=== PATIENT | male | born 1950 | race Caucasian/White ===

== ENCOUNTER 2023-01-03 11:53 | Outpatient (OUT) | payer OTHER, SELFPAY ==
[2023-01-03 12:24] LABS: Basophils Percent Auto 0.6 % (0.2-2.0); Eosinophils Absolute Auto 0.1 10^3/uL (0.0-0.7); Hematocrit 43.7 % (42.0-54.0); Hemoglobin 15.5 g/dL (14.0-18.0); Immature Granulocytes Abs Auto 0.01 10^3/uL (0.00-0.03); Immature Granulocytes Pct Auto 0.2 % (0.0-0.5); Lymphocytes Absolute Auto 0.9 10^3/uL (1.2-3.8); Lymphocytes Percent Auto 18.9 % (20.5-60.0); Mean Corpuscular HGB Conc 35.5 g/dL (29.9-35.2); Mean Corpuscular Hemoglobin 34.1 pg (25.9-34.0); Mean Platelet Volume 8.9 fL (9.5-13.5); Monocytes Absolute Auto 0.5 10^3/uL (0.3-0.8); Monocytes Percent Auto 9.1 % (1.7-12.0); Neutrophils Absolute Auto 3.5 10^3/uL (1.4-6.5); Neutrophils Percent Auto 70.2 % (43.0-75.0); Platelet Count 196 10^3/uL (150-450); Red Blood Count 4.55 10^6/uL (4.70-6.10); Red Cell Distribution Width 12.7 % (11.0-15.0)
[2023-01-03 12:45] LABS: Alanine Aminotransferase 22 U/L (16-63); Albumin Level 3.8 g/dL (3.4-5.0); Alkaline Phosphatase 71 U/L (46-116); Anion Gap 12.1; Aspartate Amino Transferase 14 U/L (15-37); BUN Creatinine Ratio 12.3; Bilirubin Total 0.7 mg/dL (0.2-1.0); Calcium 8.9 mg/dL (8.5-10.1); Carbon Dioxide 26.9 mmol/L (21.0-32.0); Chloride 104 mmol/L (98-107); Cholesterol 222 mg/dL (<=200); Estimated GFR (African America >60 (>=60); Estimated GFR (Non-African Ame >60 (>=60); Globulin 3.7 g/dL; Glucose 103 mg/dL (74-106); HDL Cholesterol 56 mg/dL (40-60); Sodium 139 mmol/L (136-145); Total Protein 7.5 g/dL (6.4-8.2); Triglycerides 98 mg/dL (<=150); VLDL CHOLESTEROL 19.6 mg/dL
[2023-01-03 13:12] LABS: Prostate Specific Antigen Scrn 7.74 ng/mL (<=4.00)
== END 2023-01-03 11:54 | disposition home or self-care (01) ==
PROVIDERS: PCP Internal Medicine; Visit Provider Internal Medicine
DX: Z00.00 Encounter for general adult medical examination without abnormal findings (principal); Z12.5 Encounter for screening for malignant neoplasm of prostate
CPT/HCPCS: 36415; 80053; 80061; 85025; G0103

== ENCOUNTER 2023-04-18 07:46 | Outpatient (OUT) | payer OTHER, SELFPAY ==
--- NOTE | 2023-04-18 07:57 | CT_ITS ---
The [address] [address] Patient Name: ROBERT BERG MRN: [id number] date: 1950 Sex: M Assigned Patient Location: LAB Current Patient Location: LAB Accession/Order Number: [id number] Exam Date: 04/18/2023 09:15 Report Date: 04/18/2023 09:56 At the request of: MATT PERKINS Procedure: CT abdomen pelvis w con CT abdomen pelvis w con, 04/18/2023 9:15 AM EST INDICATION: Gross Hematuria R31.0 COMPARISON: There is no appropriate prior study for comparison. TECHNIQUE: Axial images of the abdomen were obtained after the administration of IV and oral contrast. Multiplanar reformatted images were generated and reviewed as needed. Dose reduction techniques were achieved by using automated exposure control and/or adjustment of mA and/or kV according to patient size and/or use of iterative reconstruction technique. FINDINGS: Lungs: The base of lungs is clear. No pleural effusion is noted. Liver and gallbladder: The liver and gallbladder are unremarkable. No enlargement of intra or extrahepatic biliary ducts. Genitourinary system: No hydronephrosis. No nephrolithiasis. Left-sided parapelvic (sinus) cysts are noted. No suspicious renal lesion is noted. There is a large prostate extending to the urinary bladder. No abnormality of the opacified ureters is noted. There is asymmetrical thickening of the right urinary bladder wall measuring 3.2 mm. Other solid abdominal organs: adrenal glands, pancreas, and spleen are unremarkable. Aorta: The infrarenal abdominal aorta is nonaneurysmal. Free fluid: There is no free fluid in the abdomen pelvis. Lymph node: No lymph node enlargement by size criteria is noted. Stomach and Bowel: There is a large hypodense lesion with significant calcification along the cardia and fundus of the stomach with no definite obstruction most likely consistent with a gastrointestinal stromal tumor. No adjacent lymphadenopathy is noted. No abnormality of small or large bowel is noted. Bone: There is no suspicious osteolytic or osteoblastic lesion. Lower lumbar spine degenerative changes are noted. CT/CT abdomen pelvis w con IMPRESSION: Asymmetrical thickening of the right urinary bladder wall. Cystoscopy and histopathology correlation may be helpful for further evaluation. Mass along the cardia and fundus of the stomach with calcification most likely consistent with gastrointestinal stromal tumor. No evidence of metastasis. Endoscopy and histopathological correlation is recommended if it is not known. An incidental note was submitted to inform the clinician at 9:55 AM. Electronically authenticated by: CASE KEMP Date: 04/18/2023 09:56
[2023-04-18 08:05] LABS: Estimated GFR (African America >60 (>=60); Estimated GFR (Non-African Ame >60 (>=60)
[2023-04-19 14:10] LABS: PSA, Free 2.07 ng/mL; Prostate Specific Ag 6.5 ng/mL (0.0-4.0)
--- OUTSIDE RECORDS SUMMARY | 2023-05-16 22:07 | XMS_ITS | CCD ---
Author Name Unknown Address [address] [place] [address] Organization [facility] Care Team Providers Care Human Resource Adviser Name Role Phone Destinee Arteaga Unavailable Luisito Romero Unavailable LUISITO ROMERO Primary Care Physician Kashif BOWMAN Attending Unavailable Kashif BOWMAN Attending Unavailable LUISITO ROMERO Referring Unavailable Destinee Arteaga Attending Unavailable Destinee Arteaga Admitting Unavailable Luisito Romero Primary Care Unavailable DO Luisito Romero Primary Care Provider MD Leonardo Alves Attending Provider [phone] Allergies Allergy Classification Reported Allergen(s) Allergy Type Date of Onset Reaction(s) Facility (1 source) No Known Medication Allergies; Translations: [No Known Medication Allergies] Propensity to adverse reactions (disorder) [facility] Medications Current Medications Medication Drug Class(es) Dates Sig (Normalized) Sig (Original) aspirin 81 mg oral tablet (9 sources) Platelet Aggregation Inhibitor, Nonsteroidal Anti-inflammatory Drug Start: 05-16-2023 take 81 mg by mouth once daily Aspirin Active 81 MG PO Daily May 16, 2023 12:00am Start: 05-01-2023 take 1 mg by mouth once daily aspirin 81 mg Oral EC Tab mg tab(s), Oral, Daily, Refills(s) 0 Start Date: 05/01/23 Status: Ordered take 2 tablets by mo [facility] once daily Aspirin 81 81 MG 2 tablet Orally Once a day Active take 2 tablets by mo ut every twenty-four hours Aspirin 81 81 MG 2 tablet Orally Once a day Active take 1 tablet by [facility] every twenty-four hours Aspirin 81 81 MG 1 tablet Orally Once a day Active ciprofloxacin 500 mg oral tablet (1 source) Quinolone Antimicrobial Start: 05-01-2023 End: 05-08-2023 Cipro 500 mg Tab 500 mg = 1 tab(s), Oral, BID, start 3 days prior to procedure, X 7 day(s), # 14 tab(s), Refills(s) 0, Pharmacy: [facility] 1155, 185, cm, 05/01/23 13:27:00 EST, Height/Length Dosing, 95, kg, 05/01/23 13:27:00 EST, Weight Dosing Start Date: 05/01/23 Stop Date: 05/08/23 Status: Ordered tamsulosin hydrochloride 0.4 mg oral capsule (1 source) alpha-Adrenergic Ibis Start: 05-01-2023 End: 04-25-2024 take 1 capsule by mouth once daily tamsulosin 0.4 mg Cap 0.4 mg = 1 cap(s), Oral, Daily, X 30 day(s), # 30 cap(s), Refills(s) 11, Pharmacy: [facility] 1155, 185, cm, 05/01/23 13:27:00 EST, Height/Length Dosing, 95, kg, 05/01/23 13:27:00 EST, Weight Dosing Start Date: 05/01/23 Stop Date: 04/25/24 Status: Ordered Completed/Discontinued Medications Medication Drug Class(es) Dates Sig (Normalized) Sig (Original) amoxicillin 875 mg / clavulanate 125 mg oral tablet (6 sources) Penicillin-class Antibacterial Start: 01-03-2023 take 1 tablet by mouth every twelve hours Amoxicillin-Pot Clavulanate 875-125 MG 1 tablet Orally every 12 hrs for 10 days Dec, Not-Taking cefTRIAXone (7 sources) Cephalosporin Antibacterial Start: 12-11-2014 Rocephin 500 mg Nov, 250 mg sulfamethoxazole 800 mg / trimethoprim 160 mg oral tablet (14 sources) Dihydrofolate Reductase Inhibitor Antibacterial, Sulfonamide Antimicrobial Start: 12-03-2022 take 1 tablet by mouth every twelve hours Bactrim DS 800-160 MG 1 tablet Orally Twice a day for 21 days Nov, Not-Taking Start: 12-11-2014 take 1 tablet by travis th every twelve hours Bactrim DS 800-160 MG 1 tablet Orally q 12 hrs for 10 day(s) Nov, Not-Taking Problems Problem Classification Problem Date Documented Da te Episodic/Chronic Fracture of lower limb (1 source) Nondisplaced fracture of proximal phalanx of right great toe, subsequent encounter for fracture with routine healing Episodic Genitourinary symptoms and ill-defined conditions (6 sources) Gross hematuria; Translations: [Nocturia] Onset: 05-01-2023 Episodic Hyperplasia of prostate (4 sources) Nocturia due to benign prostatic hypertrophy; Translations: [Benign prostatic hyperplasia with lower urinary tract symptoms] Onset: 05-01-2023 Chronic Other connective tissue disease (1 source) Pain in right toe(s) Episodic Other ear and sense organ disorders (1 source) Cellulitis of right external ear Episodic Other nutritional; endocrine; and metabolic disorders (1 source) Overweight Episodic Other screening for suspected conditions (not mental disorders or infectious disease) (7 sources) Encounter for screening for malignant neoplasm of prostate; Translations: [Elevated prostate specific antigen [PSA]] Onset: 05-01-2023 Episodic Residual codes; unclassified (1 source) Procedure and treatment not carried out because of patient's decision for unspecified reasons Episodic Skin and subcutaneous tissue infections (6 sources) Cellulitis of right toe; Translations: [Cellulitis of toe of right foot] Episodic Substance-related disorders (2 sources) Nicotine dependence; Translations: [Nicotine dependence, unspecified, uncomplicated] Onset: 05-01-2023 Chronic Comment on above: Added secondary to d ocumentation in Social History. Unclassified (1 source) Pain in right toe(s); Translations: [Randi n in right toe(s)] Onset: 12-03-2022 Results Test Name Value Interpretation Reference Range Facil ity Formson 05-02-2023 Forms [id number] FF Normal [facility] Physician Referralon 023 Physician Referral [id number] [facility] Screenson 05-02-2023 Screens [id number] FF [facility] Ambulatory Visit Summaryon 1 07-02-2022 Ambulatory Visit Summary ROBERT BERG :1950 Visit Date:05/01/2023 Ambulatory Visit Instructions Your Diagnosis Elevated PSA BPH with urinary obstruction Gross hematuria Smoker Tests Performed Urnls Dip Stick Auto w/o Microscopy POC 87584 Your Care Team Attending Physician - ALY MENJIVAR, Kashif Menendez Primary Care Physician - LUISITO ROMERO DO Referring Physician - LUISITO ROMERO DO This Is Your Medications List Contact prescribing physician if questions or concerns aspirin (aspirin 81 mg Oral EC Tab) Discharge Vitals Heart Rate (Peripheral) 76 Respiratory Rate 16 Blood Pressure 134/78 Height 185 cm Height 73 in Weight 95 kg Weight 209 lb BMI 27.76 What to do next You Need to Schedule the Following Appointments Follow Up with ALY MENJIVAR, Kashif Menendez, CHAS When: Comments: sched cysto and TRUS/bx Where: [facility] [address] [place] [address] [phone] Medications What How Much When Instructions Unchanged aspirin (aspirin 81 mg Oral EC Tab) Every day Contact prescribing physician if questions or concerns Test Results Urnls Dip Stick Auto w/o Microscopy POC 78577 (05/01/2023) Bilirubin Urine Dipstick - Negative Blood Urine Dipstick - Negative Glucose Urine Dipstick - Negative Ketones Urine Dipstick - Negative Leukocytes Urine Dipstick - Negative Nitrite Urine Dipstick - Negative Protein Urine Dipstick - Negative Specific Josephine Urine Dipstick - 1.025 Urine Appearance Urine Dipstick - Clear Urine Color Urine Dipstick - Yellow Urobilinogen Urine Dipstick - Normal 0.2-1 EU/dl pH Urine Dipstick - 6 Allergies No Known Medication Allergies Problems Ongoing - Any problem that you are currently receiving treatment for. BPH with urinary obstruction Elevated PSA Gross hematuria Smoker Patient Survey You may receive a survey via text or e-mail asking about your office visit. Please share your experience with us by completing your survey. We appreciate your feedback and thank you for choosing us for your care. Education Materials Transrectal Ultrasound-Guided Prostate Biopsy, Care After The following information offers guidance on how to care for yourself after your procedure. Your health care provider may also give you more specific instructions. If you have problems or questions, contact your health care provider. What can I expect after the procedure? After the procedure, it is common to have: ? Pain and discomfort near your rectum, especially while sitting. ? Bow-colored urine due to small amounts of blood in your urine. ? A burning feeling while urinating. ? Blood in your stool (feces) or bleeding from your rectum. ? Blood in your semen. Follow these instructions at home: Medicines ? Take wndg-rni-kluobju and prescription medicines only as told by your health care provider. ? If you were given a sedative during your procedure, it can affect you for several hours. Do not drive or operate machinery until your health care provider says that it is safe. ? If you were prescribed an antibiotic medicine, take it as told by your health care provider. Do not stop using the antibiotic even if you start to feel better. Activity ? Return to your normal activities as told by your health care provider. Ask your health care provider what activities are safe for you. ? Ask your health care provider when it is okay for you to resume sexual activity. ? You may have to avoid lifting. Ask your health care provider how much you can safely lift. General instructions ? Drink enough fluid to keep your urine pale yellow. ? Watch your urine, stool, and semen for new or increased bleeding. ? Keep all follow-up visits. This is important. Contact a health care provider if: ? You have any of the following: ? Blood clots in your urine or stool. ? Blood in your urine more than 2 weeks after the procedure. ? Blood in your semen more than 2 months after the procedure. ? New or increased bleeding in your urine, stool, or semen. ? Severe pain in your abdomen. ? Your urine smells bad or unusual. ? You have trouble urinating. ? Your lower abdomen feels firm. ? You have problems getting an erection. ? You have nausea or you vomit. Get help right away if: ? You have a fever or chills. This could be a sign of infection. ? You have bright red urine. ? You have severe pain that does not get better with medicine. ? You cannot urinate. Summary ? After this procedure, it is common to have pain and discomfort around your rectum, especially while sitting. ? You may have blood in your urine and stool after the procedure. ? It is common to have blood in your semen after this procedure. ? Get help right away if you have a fever or chills. This could be a sign of infection. This information is not intended (more content not included)... Normal [facility] Patient Educationon 12-04-20 23 Patient Education Oncology Transrectal Ultrasound-Guided Prostate Biopsy, Care After The following information offers guidance on how to care for yourself after your procedure. Your health care provider may also give you more specific instructions. If you have problems or questions, contact your health care provider. What can I expect after the procedure? After the procedure, it is common to have: ? Pain and discomfort near your rectum, especially while sitting. ? Bow-colored urine due to small amounts of blood in your urine. ? A burning feeling while urinating. ? Blood in your stool (feces) or bleeding from your rectum. ? Blood in your semen. Follow these instructions at home: Medicines ? Take iyap-llh-bvlipxs and prescription medicines only as told by your health care provider. ? If you were given a sedative during your procedure, it can affect you for several hours. Do not drive or operate machinery until your health care provider says that it is safe. ? If you were prescribed an antibiotic medicine, take it as told by your health care provider. Do not stop using the antibiotic even if you start to feel better. Activity ? Return to your normal activities as told by your health care provider. Ask your health care provider what activities are safe for you. ? Ask your health care provider when it is okay for you to resume sexual activity. ? You may have to avoid lifting. Ask your health care provider how much you can safely lift. General instructions ? Drink enough fluid to keep your urine pale yellow. ? Watch your urine, stool, and semen for new or increased bleeding. ? Keep all follow-up visits. This is important. Contact a health care provider if: ? You have any of the following: ? Blood clots in your urine or stool. ? Blood in your urine more than 2 weeks after the procedure. ? Blood in your semen more than 2 months after the procedure. ? New or increased bleeding in your urine, stool, or semen. ? Severe pain in your abdomen. ? Your urine smells bad or unusual. ? You have trouble urinating. ? Your lower abdomen feels firm. ? You have problems getting an erection. ? You have nausea or you vomit. Get help right away if: ? You have a fever or chills. This could be a sign of infection. ? You have bright red urine. ? You have severe pain that does not get better with medicine. ? You cannot urinate. Summary ? After this procedure, it is common to have pain and discomfort around your rectum, especially while sitting. ? You may have blood in your urine and stool after the procedure. ? It is common to have blood in your semen after this procedure. ? Get help right away if you have a fever or chills. This could be a sign of infection. This information is not intended to replace advice given to you by your health care provider. Make sure you discuss any questions you have with your health care provider. Document Revised: 11/08/2021 Document Reviewed: 11/08/2021 [employer] Patient Education ? 2022 [employer]. Transrectal Ultrasound-Guided Prostate Biopsy A transrectal ultrasound-guided prostate biopsy is a procedure to remove samples of prostate tissue for testing. The prostate is a walnut-sized gland that is located below the bladder and in front of the rectum. During this procedure, a small device (probe) is lubricated and put inside the rectum. The probe sends out sound waves that make a picture of the prostate and surrounding tissues (transrectal ultrasound). The images are used to help guide the process of removing the samples. The samples are taken to a lab to be checked for prostate cancer. This procedure is usually done to evaluate the prostate gland of men who have raised (elevated) levels of prostate-specific antigen (PSA), which can be a sign of prostate cancer or prostate enlargement related to aging (benign prostatic hyperplasia, or BPH). Tell a health care provider about: ? Any allergies you have. ? All medicines you are taking, including vitamins, herbs, eye drops, creams, and pkpx-vgo-rvrmxlp medicines. ? Any problems you or family members have had with anesthetic medicines. ? Any bleeding problems you have. ? Any surgeries you have had. ? Any medical conditions you have. ? Any prostate infections you have had. What are the risks? Generally, this is a safe procedure. However, problems may occur, including: ? Prostate infection. ? Bleeding from the rectum. ? Blood in the urine. ? Allergic reactions to medicines. ? Damage to surrounding structures such as blood vessels, organs, or muscles. ? Difficulty passing urine. ? Nerve damage. This is usually temporary. What happens before the procedure? Medicines Ask your health care provider about: ? Changing or stopping your regular medicines. This is especially important if you are taking diabetes medicines or blood thinners. ? Taking medicines such as aspirin (more content not included)... Normal [facility] Urology Office/Clinic Noteon 05-01-2023 Urology Office/Clinic Note Chief Complai nt elevated PSA HPI Staff Referral for gross hematuria, bladder wall thickening and elevated PSA from Dr. Nicanor Romero. Most current PSA done 04/22/2023 is 7.6 and 28.7% was 7.4. previous PSA done 01/03/23 CT done 04/18/23 showed abnormal bladder wall thickening and a large prostate. Dysuria: no Incomplete bladder emptying: less than half of the time per IPSS Hematuria: no Frequency: less than half of the time Urgency: less than half of the time Nocturia: 2x Stream: straining, weak stream and intermittency less than half of the time Leaking: no Post void dripping: yes Wearing pads/ Depends: no Urge incontinence: no Stress incontinence: no Incontinence without Sensory Awareness: no Abdominal pain: no Flank pain: no Sexual complaints: no History of Present Illness Tests reviewed: reviewed UA, referral records I have reviewed the previous health record information and history for this patient from external providers. I have reviewed and verified the staff HPI to be accurate for this encounter. Review of Systems PHQ Score Initial Depression Screen Score: 0 SCORE ROS - Provider Constitutional: denies weight loss, denies hot flashes. Eyes: denies eye problems. Gastrointestinal: denies nausea, denies vomiting. Cardiovascular: denies chest pain or angina. Integumentary: no dryness Musculoskeletal: denies musculoskeletal symptoms. ENMT: denies otolaryngeal symptoms. Respiratory: no shortness of breath. Heme/Lymph: denies easy bleeding tendency, denies easy bruising tendency. Psychiatric: no confusion, no anxiety. Genitourinary: See HPI. Physical Exam Vitals & Measurements HR: 76(Peripheral) RR: 16 BP: 134/78 HT: 73 in HT: 185 cm WT: 95 kg WT: 209 lb BMI: 27.76 General Appearance: alert, no distress, well nourished, well developed male. Genitourinary: normal scrotum, normal testes, normal urethra, normal epididymis, normal vas deferens/spermatic cord. Flank Pain: none. Bladder: nonpalpable. Prostate: normal prostate, estimated weight 50 gms, no hard nodule observed. 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 Luisito Romero for elevated PSA, bladder wall thickening, and gross hematuria. 1. Elevated PSA (R97.20: Elevated prostate specific antigen [PSA]) PSA 01/03/23 - 7.74 04/19/23 - 6.5 & 31.8% 04/22/23 - 7.6 & 28.7% No known fam hx of prostate ca. LUIS ALFREDO: 50gms, no nodules Discussed recent PSA levels which are elevated. No other PSAs on record. This could indicate prostate cancer, prostate infection, prostate inflammation without infection, prostate manipulation, or benign prostate enlargement (BPH). The importance of the rate of PSA rise has also been discussed. The options for management have been discussed, including prostate biopsy versus close monitoring of the PSA over time. -Will schedule TRUS of Prostate with Biopsy. The procedural risks, benefits, details, and treatment alternatives have been discussed with the patient. These include minimal to severe bleeding, infection, blood in the semen, inability to urinate, and severe infection requiring hospitalization and IV antibiotics, among others. Full informed consent has been obtained. Will order Local anesthesia. 2. BPH with urinary obstruction (N40.1: Benign prostatic hyperplasia with lower urinary tract symptoms) CT AP w con 04/18/23 [facility] - large prostate extending to urinary bladder. IPSS 14, QoL 1. fair stream. Strains with urination, states he is always in a hurry. Advised pt to take more time with voids to ensure complete bladder emptying to decrease likelihood of infection. Has never tried any prostate meds. Discussed options, such as oral meds and cystoscopy to evaluate prostate and bladder. Pt to try Flomax. Discussed the medication side effects, and the patient will monitor closely for these, as well as for symptom improvement. If severe side effects occur, the medication should be stopped and the office notified. -Begin Tamsulosin 0.4mg qd. Rx sent to [facility]. -Will schedule cystoscopy. The risks and benefits for cystoscopy have been discussed. The risks include bleeding, infection, and irritation of the bladder and urinary channel, among others. The patient, after being informed of procedural details and after questions have been answered, wishes to proceed. Full informed consent has been obtained. Will order Local anesthesia. 3. Gross hematuria (R31.0: Gross hematuria) Reports he saw blood in his urine in past but had a toe infection treated with abx and did not see blood after. Discussed blood may have been due to prostate infection. UA today negative for blood and infection. CT AP w con 04/18/23 [facility] - asymmetrical thickening of R urinary bladder wall measuring 3.2mm. No renal lesions or stones noted. -Sched cysto. See #2. 4. Smoker (F17.200: Nicotine dependence, unspecified, uncomplicated) Has quit several times but continues to smoke 1/4 PPD. Increased risk for urothelial ca. Follow-up (more content not included)... Normal [facility] Comment on above: Result Comment: Elec tronically Signed By: Kashif BOWMAN MD\.br\Date and Time Signed: 05/01/23 14:04 EST\.br\Electronically Co-Signed By: Kaye Zavala\.br\Date and Time Co-Signed: 05/01/23 14:01 EST XR foot RT min 3V*on 023 XR foot RT min 3V* [facility] [employer] Other XR foot RT min 3V* [facility] [employer] Other XR foot RT min 3V* [address] [place] [address] [employer] Other XR foot RT min 3V* [place] [address] [employer] Other XR foot RT min 3V* XRay Report [employer] Other XR foot RT min 3V* Signed [employer] Other XR foot RT min 3V* Patient: Robert Berg MR#: [id number] [place] [employer] Other XR foot RT min 3V* : 1950 Acct:[id number] [facility] [employer] Other XR foot RT min 3V* Age/Sex: 72 / M ADM Date: 12/03/22 [employer] Other XR foot RT min 3V* Loc: XDUCLY Room: pe: REG CLI [employer] Other XR foot RT min 3V* Attending Dr: Destinee DONALDSON [employer] Other XR foot RT min 3V* Copies to: MENDOZA Sheets [employer] Other XR foot RT min 3V* Ordering Provider: MENDOZA Zacarias [employer] Other XR foot RT min 3V* Date of Service: 12/03/22 [employer] Other XR foot RT min 3V* [id number]) XR/XR foot RT min 3V*: M79.674 [employer] Other XR foot RT min 3V* XR foot RT min 3V* 9:46 AM [employer] Other XR foot RT min 3V* SIGNS AND SYMPTOMS: Pain around great toe, history of injury to right foot [employer] Other XR foot RT min 3V* PROTOCOL: Frontal, l ateral, and oblique radiographs of the right foot [employer] Other XR foot RT min 3V* COMPARISON: None [employer] Other XR foot RT min 3V* FINDINGS: [employer] Other XR foot RT min 3V* There is a healing f racture of the midshaft of the proximal phalanx of the great toe. The bones are [employer] Other XR foot RT min 3V* grossly intact. Ther e is soft tissue swelling predominantly surrounding the great toe. Joint spaces [facility] [employer] Other XR foot RT min 3V* are preserved. No rt [employer] Other XR foot RT min 3V* X R/XR foot RT min 3V* [place] [employer] Other XR foot RT min 3V* IMPRESSION: [employer] Other XR foot RT min 3V* No acute displaced fracture. [employer] Other XR foot RT min 3V* There is a healing f racture of the midshaft of the proximal phalanx of the great toe. [employer] Other XR foot RT min 3V* Impression dictated by: Kenrick Monge M.D.12/03/2022 10:00 AM [place] [employer] Other XR foot RT min 3V* Dictation Location: RADIO-PC-13 [facility] [employer] Other XR foot RT min 3V* Transcribed By: CARLA 12/03/22 1000 [facility] [employer] Other XR foot RT min 3V* Dictated By: Kenrick Monge II, MD 12/03/22 0957 [facility] [employer] Other XR foot RT min 3V* Signed By: [employer] Other XR foot RT min 3V* 12/03/22 1000 [facility] [employer] Other XR foot RT min 3V* [facility] Main [place] [address] [place], [place] [id number] XRay Report Signed Patient: Robert Berg MR#: [id number] : 1950 Acct:[id number] Age/Sex: 72 / M ADM Date: 12/03/22 Loc: XDUCLY Room: Type: REG CLI Attending Dr: Destinee DONALDSON Copies to: MENDOZA Sheets Ordering Provider: MENDOZA Sheets Date of Service: 12/03/22 XR/XR foot RT min 3V*: M79.674 XR foot RT min 3V* 12/03/2022 9:46 AM SIGNS AND SYMPTOMS: Pain around great toe, history of injury to right foot PROTOCOL: Frontal, lateral, and oblique radiographs of the right foot COMPARISON: None FINDINGS: There is a healing fracture of the midshaft of the proximal phalanx of the great toe. The bones are grossly intact. There is soft tissue swelling predominantly surrounding the great toe. Joint spaces are preserved. XR/XR foot RT min 3V* IMPRESSION: No acute displaced fracture. There is a healing fracture of the midshaft of the proximal phalanx of the great toe. Impression dictated by: Kenrick Monge M.D.12/03/2022 10:00 AM Dictation Location: [place] [address] Transcribed By: [facility] 12/03/22 1000 Dictated By: Kenrick Monge II, MD 12/03/22 0957 Signed By: 12/03/22 1000 Normal [facility] Vital Signs Date Time Vital Sign Value Performing Clinician Facility 05-16-2023 14:07-0500 Diastolic blood pressure 81 mm[Hg] DO Luisito Ball Work Phone: [facility] 05-16-2023 14:07-0500 Heart rate 69 /min DO Luisito Ball Work Phone: [facility] 05-16-2023 14:07-0500 Respiratory rate 18 /min DO Luisito Ball Work Phone: [facility] 05-16-2023 14:07-0500 SaO2% (BldA) [Mass fraction] 98 % DO Luisito Ball Work Phone: [facility] 05-16-2023 14:07-0500 Systolic blood pressure 137 mm[Hg] DO Luisito Ball Work Phone: [facility] 05-16-2023 11:42-0500 Body height 185.42 cm DO Luisito Ball Work Phone: [facility] 05-16-2023 11:42-0500 Body weight 95.25 kg DO Luistio Ball Work Phone: [facility] 05-01-2023 13:15-0500 Blood Pressure Location Kashifjasbir BOWMAN [facility] 05-01-2023 13:15-0500 Diastolic blood pressure 78 mm[Hg] Kashifjasbir BOWMAN [facility] 05-01-2023 13:15-0500 Heart rate 76 /min Kashifjasbir BOWMAN [facility] 05-01-2023 13:15-0500 Respiratory rate 16 /min Kashifjasbir BOWMAN [facility] 05-01-2023 13:15-0500 Systolic blood pressure 134 mm[Hg] Kashifjasbir BOWMAN [facility] 04-26-2023 10:00-0500 Body height 185.42 cm Luisito Ball Other [facility] [employer] Other 04-26-2023 10:00-0500 Body mass index (BMI) [Ratio] 27.49 kg/m2 Luisito Ball Other [facility] [employer] Other 04-26-2023 10:00-0500 Body weight 94.53 kg Luisito Ball Other [facility] Other 04-26-2023 10:00-0500 Diastolic blood pressure 85 mm[Hg] Luisito Ball Other [facility] Other 04-26-2023 10:00-0500 Respiratory rate 12 /min Luisito Ball Other [facility] Other 04-26-2023 10:00-0500 Systolic blood pressure 151 mm[Hg] Luisito Ball Other [facility] Other 01-03-2023 11:00-0400 Body height 185.42 cm Luisito Ball Other [facility] Other 01-03-2023 11:00-0400 Body mass index (BMI) [Ratio] 28.13 kg/m2 Luisito Ball Other [facility] Other 01-03-2023 11:00-0400 Body weight 96.71 kg Luisito Ball Other [facility] Other 01-03-2023 11:00-0400 Diastolic blood pressure 86 mm[Hg] Luisito Ball Other [facility] Other 01-03-2023 11:00-0400 Respiratory rate 12 /min Luisito Ball Other [facility] Other 01-03-2023 11:00-0400 Systolic blood pressure 137 mm[Hg] Luisito Ball Other [facility] Other 12-03-2022 09:10-0400 Body height 185.42 cm Destinee Arteaga Other [facility] Other 12-03-2022 09:10-0400 Body mass index (BMI) [Ratio] 28.36 kg/m2 Destinee Jenni Other [facility] Other 12-03-2022 09:10-0400 Body temperature 97.5 [degF] Destinee Arteaga Other [facility] Other 12-03-2022 09:10-0400 Body weight 97.52 kg Destinee Arteaga Other [facility] Other 12-03-2022 09:10-0400 Diastolic blood pressure 84 mm[Hg] Destinee Arteaga Other [facility] Other 12-03-2022 09:10-0400 Respiratory rate 18 /min Destinee Arteaga Other [facility] Other 12-03-2022 09:10-0400 SaO2% (BldA) [Mass fraction] 97 % Destinee Arteaga Other [facility] Other 12-03-2022 09:10-0400 Systolic blood pressure 131 mm[Hg] Destinee Arteaga Other [facility] Other Encounters Encounter Date Encounter Type Care Provider Facility Start: 06-30-2023 ambulatory Kashfi BOWMAN Facili ty:[facility] [place] Start: 05-16-2023 End: 05-16-2023 Admission to same day surgery center DO Luisito Romero Work Phone: [facility] Work Phone: Start: 05-16-2023 End: 05-16-2023 ambulatory DO Luisito Romero Work Phone: [facility] Work Phone: Start: 05-01-2023 End: 05-02-2023 ambulatory Kashif BOWMAN Facility:[facility] [place] Start: 05-01-2023 End: 05-01-2023 Patient encounter procedure Kashif BOWMAN [facility] [place] Start: 04-28-2023 ambulatory Kashif BOWMAN Facility :[facility] [place] Start: 04-26-2023 End: 04-26-2023 ambulatory Luisito Rmoero Other [facility] Other Start: 04-26-2023 Office outpatient vi sit 25 minutes Luisito Romero [facility] Start: 04-19-2023 End: 04-19-2023 ambulatory Luisito Romero Other [facility] Other Start: 04-19-2023 Telephone encounter Luisito LEIVA [facility] Start: 03-29-2023 End: 03-29-2023 ambulatory Luisito Romero Other [facility] Other Start: 03-29-2023 Telephone encounter Luisito LEIVA [facility] Start: 02-09-2023 End: 02-09-2023 ambulatory Luisito Romero Other [facility] Other Start: 02-09-2023 Telephone encounter Luisito Romero [facility] Start: 01-22-2023 End: 01-22-2023 ambulatory Luisito Romero Other [facility] Other Start: 01-22-2023 Telephone encounter Luisito LEIVA [facility] Start: 01-03-2023 End: 01-03-2023 ambulatory Luisito Romero Other [facility] Other Start: 01-03-2023 Encounter for genera l adult medical examination without abnormal findings Luisito Romero [facility] Start: 01-03-2023 Periodic preventive med est patient 65yrs& older Luisito Romero [facility] Start: 12-03-2022 Office outpatient ne w 20 minutes Destinee Arteaga [facility] Start: 12-03-2022 End: 12-03-2022 ambulatory Destinee Arteaga [place] [facility] Other Start: 12-03-2022 End: 12-03-2022 Patient encounter procedure [employer]-C Destinee Arteaga Work Phone: [facility] Work Phone: Procedures Date Procedure Procedure Detail Performing Clinician Start: 05-16-2023 Esophagogastroduodenoscopy DO Luisito Romero Work Phone: Start: 12-03-2022 X-ray of right foot FELIPE- Angela Arteaga Work Phone: Plan of Treatment Date Care Activity Detail Author Start: 05-16-2023 [facility] Payers Date Payer Category Payer Self-pay 2022 Unknown [id number] [id number] 1950 Unknown [id number] 1950 Unknown [id number] Unknown [id number] Social History Date Type Detail Facility Unknown if ever smoked [facility] Other Sex Assigned At [facility] Start: 1950 Sex Assigned At Male F [facility] Start: 05-01-2023 Tobacco smoking status Smoker (rita armstrong) [facility] Start: 05-16-2023 Tobacco smoking stat us NHIS Current some day smoker [facility] Goals Date Patient Goal Desired Activity /State Functional Status Date Assessment Result Facility 05-01-2023 Functional Status N/A [facility] Clinical Notes 12-03-2022 to 05-16-2023 Note Date & Type Note Facility 05-16-2023 Procedure note [facility] 05-01-2023 Hospital Discharg e instructions Patient Education 05/01/2023 13:54:15 Transrectal Ultrasound-Guided Prostate Biopsy, Care After Transrectal Ultrasound-Guided Prostate Biopsy, Care After The following information offers guidance on how to care for yourself after your procedure. Your health care provider may also give you more specific instructions. If you have problems or questions, contact your health care provider. What can I expect after the procedure? After the procedure, it is common to have: Pain and discomfort near your rectum, especially while sitting. Bow-colored urine due to small amounts of blood in your urine. A burning feeling while urinating. Blood in your stool (feces) or bleeding from your rectum. Blood in your semen. Follow these instructions at home: Medicines Take liar-ijh-vghkukd and prescription medicines only as told by your health care provider. If you were given a sedative during your procedure, it can affect you for several hours. Do not drive or operate machinery until your health care provider says that it is safe. If you were prescribed an antibiotic medicine, take it as told by your health care provider. Do not stop using the antibiotic even if you start to feel better. Activity Return to your normal activities as told by your health care provider. Ask your health care provider what activities are safe for you. Ask your health care provider when it is okay for you to resume sexual activity. You may have to avoid lifting. Ask your health care provider how much you can safely lift. General instructions Drink enough fluid to keep your urine pale yellow. Watch your urine, stool, and semen for new or increased bleeding. Keep all follow-up visits. This is important. Contact a health care provider if: You have any of the following: ?Blood clots in your urine or stool. ?Blood in your urine more than 2 weeks after the procedure. ?Blood in your semen more than 2 months after the procedure. ?New or increased bleeding in your urine, stool, or semen. ?Severe pain in your abdomen. Your urine smells bad or unusual. You have trouble urinating. Your lower abdomen feels firm. You have problems getting an erection. You have nausea or you vomit. Get help right away if: You have a fever or chills. This could be a sign of infection. You have bright red urine. You have severe pain that does not get better with medicine. You cannot urinate. Summary After this procedure, it is common to have pain and discomfort around your rectum, especially while sitting. You may have blood in your urine and stool after the procedure. It is common to have blood in your semen after this procedure. Get help right away if you have a fever or chills. This could be a sign of infection. This information is not intended to replace advice given to you by your health care provider. Make sure you discuss any questions you have with your health care provider. Document Revised: 11/08/2021 Document Reviewed: 11/08/2021 [employer] Patient Education 2022 [employer]. 05/01/2023 13:54:14 Transrectal Ultrasound-Guided Prostate Biopsy Transrectal Ultrasound-Guided Prostate Biopsy A transrectal ultrasound-guided prostate biopsy is a procedure to remove samples of prostate tissue for testing. The prostate is a walnut-sized gland that is located below the bladder and in front of the rectum. During this procedure, a small device (probe) is lubricated and put inside the rectum. The probe sends out sound waves that make a picture of the prostate and surrounding tissues (transrectal ultrasound). The images are used to help guide the process of removing the samples. The samples are taken to a lab to be checked for prostate cancer. This procedure is usually done to evaluate the prostate gland of men who have raised (elevated) levels of prostate-specific antigen (PSA), which can be a sign of prostate cancer or prostate enlargement related to aging (benign prostatic hyperplasia, or BPH). Tell a health care provider about: Any allergies you have. All medicines you are taking, including vitamins, herbs, eye drops, creams, and zgcm-yhu-lwntbgc medicines. Any problems you or family members have had with anesthetic medicines. Any bleeding problems you have. Any surgeries you have had. Any medical conditions you have. Any prostate infections you have had. What are the risks? Generally, this is a safe procedure. However, problems may occur, including: Prostate infection. Bleeding from the rectum. Blood in the urine. Allergic reactions to medicines. Damage to surrounding structures such as blood vessels, organs, or muscles. Difficulty passing urine. Nerve damage. This is usually temporary. What happens before the procedure? Medicines Ask your health care provider about: Changing or stopping your regular medicines. This is especially important if you are taking diabetes medicines or blood thinners. Taking medicines such as aspirin and ibuprofen. These medicines can thin your blood. Do not take these medicines unless your health care provider tells you to take them. Taking chtz-bfz-wtgipsv medicines, vitamins, herbs, and supplements. General instructions Follow instructions from your health care provider about eating and drinking. In most instances, you will not need to stop eating and drinking completely before the procedure. You will be given an enema. During an enema, a liquid is injected into your rectum to clear out waste. You may have a blood or urine sample taken. Ask your health care provider what steps will be taken to help prevent infection. These steps may include: ?Washing skin with a germ-killing soap. ?Taking antibiotic medicine. If you will be going home right after the procedure, plan to have a responsible adult: ?Take you home from the hospital or clinic. You will not be allowed to drive. ?Care for you for the time you are told. What happens during the procedure? An IV will be inserted into one of your veins. You will be given one or both of the following: ?A medicine to help you relax (sedative). ?A medicine to numb the area (local anesthetic). You will be placed on your left side, and your knees will be bent toward your chest. A probe with lubricated gel will be placed into your rectum, and images will be taken of your prostate and surrounding structures. Numbing medicine will be injected into your prostate. A biopsy needle will be inserted through your rectum or perineum and guided to your prostate using the ultrasound images. Prostate tissue samples will be removed, and the needle and probe will then be removed. The biopsy samples will be sent to a lab to be tested. The procedure may vary among health care providers and hospitals. What happens after the procedure? Your blood pressure, heart rate, breathing rate, and blood oxygen level will be monitored until you leave the hospital or clinic. You may have some discomfort in the rectal area. You will be given pain medicine as needed. If you were given a sedative during the procedure, it can affect you for several hours. Do not drive or operate machinery until your health care provider says that it is safe. It is up to you to get the results of your procedure. Ask your health care provider, or the department that is doing the procedure, when your results will be ready. Keep all follow-up visits. This is important. Summary A transrectal ultrasound-guided biopsy removes samples of tissue from your prostate using ultrasound-guided sound waves to help guide the process. This procedure is usually done to evaluate the prostate gland of men who have raised (elevated) levels of prostate-specific antigen (PSA), which can be a sign of prostate cancer or prostate enlargement related to aging. After your procedure, you may feel some discomfort in the rectal area. Plan to have a responsible adult take you home from the hospital or clinic, and follow up with your health care provider for your results. This information is not intended to replace advice given to you by your health care provider. Make sure you discuss any questions you have with your health care provider. Document Revised: 11/08/2021 Document Reviewed: 11/08/2021 [employer] Patient Education 2022 [employer]. Follow Up Care 04/28/2023 10:40:46 With:ALY MENJIVAR, Kashif Menendez, URL Address: [facility] [address], [place] [address]- [phone] When: Unknown Comments:sched cysto and TRUS/bx [facility] 04-26-2023 Evaluation note Encounter Date Diagnosis Assessment Notes Mar, Gross hematuria (ICD-10 - R31.0) Discussed implications of hematuria. CT scan to r/o renal and bladder tumors as well as nephrolithiasis and hydronephrosis. Cystoscopy to r/o superficial bladder tumor. No s/s infection Mar, Elevated PSA (ICD-10 - R97.20) DIscussed implications of an elevated PSA - prostate infection, BPH and malignancy can all increase the PSA - will require MRI and targeted vs random bx to r/o malignancy Mar, Benign prostatic hyperplasia with lower urinary tract symptoms (ICD-10 - N40.1) Symptoms tolerable. Long hx of polyuria and nocturia. 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 No evidence of metastasis. Mar, Abnormal CT scan, bladder (ICD-10 - R93.41) Asymmetrical thickening of the right urinary bladder wall. Cystoscopy and histopathology correlation may be helpful for further evaluation. [facility] Other 11-01-2023 Evaluation note* Encounter Date Diagnosis Assessment Notes Treatment Notes Treatment Clinical Notes Mar, Gross hematuria (ICD-10 - R31.0) [facility] Other 09-14-2023 Evaluation note* Encounter Date Diagnosis Assessment Notes Treatment Notes Treatment Clinical Notes Jan, Elevated PSA (ICD-10 - R97.20) Jan, Gross hematuria (ICD-10 - R31.0) [facility] Other 08-08-2023 Evaluation note* Encounter Date Diagnosis Assessment Notes Treatment Notes Treatment Clinical Notes Dec, Wellness examination (ICD-10 - Z00.00) Healthy diet and exercise. Reviewed age-appropriate preventive testing recommended. Dec, Paronychia of great toe, right (ICD-10 - L03.031) Soak daily, apply cortisone to edge of nail Augmentin bid x 10 days Recheck in 10 days Dec, Overweight (ICD-10 - E66.3) This patient has been instructed on a low-fat, high-fiber diet. They are instructed to reduce calories, portion sizes and snacks. It is recommended that they exercise for 30 minutes, 3-5 times weekly. Dec, Screening PSA (prostate specific antigen) (ICD-10 - Z12.5) Yearly PSA Dec, Screening for malignant neoplasm of colon declined (ICD-10 - Z53.20) Reviewed screening choices: Cologuard vs colonoscopy He is a asymptomatic, low risk patient. He was informed of benefits to screen prior to symptoms, life saving [facility] Other 07-08-2023 Evaluation note* Encounter Date Diagnosis Assessment Notes Treatment Notes Treatment Clinical Notes Nov, Pain of right great toe (ICD-10 - M79.674) Nov, Cellulitis of tragus of right ear (ICD-10 - H60.11) Cellulitis: adult home care material was printed Drink plenty fluids, get plenty of rest. Take the Bactrim as prescribed until gone. Apply warm compresses to your ear 2-3 times a day. Take Tylenol or Motrin as needed for toe pain. Follow-up with your family doctor if no improvement in your ear or your toe in 4 to 5 days. Go to the ER for worsening symptoms or concerns Nov, Closed nondisplaced fracture of proximal phalanx of right great toe with routine healing, subsequent encounter (ICD-10 - S92.414D) Toe fracture home care material was printed [facility] Other Evaluation + Plan note Future Appointments Appointment Date:06/06/2023 10:00:00 AM Scheduled Provider: Location:[facility] Appointment Type:Urology CALL PAT FT Appointment Date:06/13/2023 02:30:00 PM Scheduled Provider: Location:[facility] Appointment Type:Urology FT Appointment Date:06/30/2023 09:15:00 AM Scheduled Provider:Kashif BOWMAN MD Location:[facility] Appointment Type:URO Office Visit [facility] evaluation noteNo assessment information available [facility] Work Phone: Evaluation noteNo InformationNort Pockit Other History and physical note Author Leonardo Alves [facility] May 16, 2023 1:26pm Note Date/Time May 16, 2023 1:25pm [facility] [address] [place] [address] Gastroenterology H&P Signed Patient: Robert Berg MR#: [id number] : 1950 Acct:[id number] Age/Sex: 73 / M Adm Date: 3 Loc: Room: Type: [facility] Attending Dr: Leonardo Alves MD Copies to: DO Leonardo Cleary MD~ Date of Service: 05/16/2023 HISTORY & PHYSICAL: Patient's history with special attention to the cardiovascular, pulmonary systems and the current problem was reviewed with the patient immediately prior to the procedure. Present medications and doses reviewed in the EMR. Allergies and pertinent laboratory tests were also reviewedat this time in the EMR. The physical examination, as below, was then performed. Indication, assessment and HPI: 73-year-old male who presents for EGD to evaluate abnormal CT findings, incidentally seen calcified gastric mass in the cardia. Patient denies any symptoms. Family history of GI malignancy? No PHYSICAL EXAMINATION Mouth and Pharynx : Moist mucus membranes, normal dentition Cardiac: Regular rate, regular rhythm Pulmonary: Clear to auscultation bilaterally, no wheezing Neurological: Alert and oriented x3, no focal deficits noted Abdomen: Abdomen soft, non-tender REVIEW OF SYSTEMS Constitutional: Denies malaise, fevers Cardiovascular: Denies chest pain, palpitations Respiratory: Denies shortness of breath, wheezing Gastrointestinal: Per HPI Genitourinary: Denies dysuria, polyuria Musculoskeletal: Denies joint swelling, joint stiffness Neurological: Denies numbness, tingling Integumentary: Denies rashes, skin lesions Endocrine: Denies fatigue, weight loss Written informed consent obtained from the patient. Risks (including but not limited to perforation, infection, bloating, bleeding, need for emergent surgeryand loss of life), benefits and alternatives explained and questions answered. The patient verbalized understanding. Based on history patient is an appropriate candidate for the procedure. Leonardo Alves MD Documented By: Leonardo Alves MD 05/16/23 3605 Signed By: <Electronically signed by Leonardo Alves MD> 05/16/23 [id number] [facility] Work Phone: His[facility] general Narrative - Reported* Type Description Date Surgical History knee surgery [facility] Other [facility]iste[facility] general Narrative - Reported* Type Description Date Surgical History scar tissue removed from left h ip Hospitalization History see surgical history [facility] Other History general Narrative - Reported* Type Description Date Medical History Paronychia of great toe, right Surgical History scar tissue removed from left h ip Hospitalization History see surgical history [facility] Other [facility] general Narrative - Reported* Type Description Date Medical History Paronychia of great toe, right Medical History BPH Medical History Elevated PSA Surgical History scar tissue removed from left h ip Hospitalization History see surgical history [facility] Other Hospital course Narrative No data available for this section [facility] Hospital Discharge instructions Additional Instructions DISCHARGE INSTRUCTIONS FOR UPPER ENDOSCOPY WHAT TO EXPECT: - You may feel full, gassy or cramping after your procedure. In some cases, this may be from a few hours to a day. Walking may help relieve the discomfort. - Your throat may feel sore today from the scope that the doctor passed through your throat to visualize your stomach. Take a throat lozenge or suck on ice to ease the discomfort. - You may notice some streaks of blood in your sputum if the doctor has taken a biopsy. - You should begin to recover from anesthesia within 1 hour of the procedure, however may feel groggy for the next 24 hours. DO's AND DON'Ts: - Call your doctor right away if you have a hard abdomen, severe pain, vomiting or if you cough up large amounts of blood. - Call your doctor if you develop any rashes, hives or difficulty breathing. - If you take 81 mg aspirin for your heart it is safe to resume this medication. - If you take other blood thinner medications your doctor will instruct you when these can safely be resumed. - Do NOT drive for 24 hours. - Do NOT operate machinery such as power tools, lawn mowers, snow blowers, sewing machines, etc. for 24 hours. - Avoid alcoholic beverages and drugs for allergies, nerves, or sleep. - Do NOT stay alone. Do NOT leave your child unattended. - Do NOT make important personal or business decisions or sign any legal documents. - Eat solid foods and drink liquids in smaller amounts than usual until normal appetite returns. If you should experience an upset stomach, liquids high in sugar content (soda, Edinson-Aid, non-acid juices) are recommended. - Do NOT smoke. - Do take it easy today. You need not stay in bed, but avoid strenuous activities such as jogging or working out. FOLLOW UP & RECOMMENDATIONS: -The GI office will give you a referral to [facility] for special procedure. -Notify the doctor if you have any problems. -Follow up with PCP. -Office number [phone].[facility] Work Phone: Progress note No data available for this section [facility] reason for referral (narrative)* Reason *FU 05/04 Referral for gross hematuria, thickening of the bladder wall and elevated PSA Diagnosis 1 Gross hematuria (R31 .0) Diagnosis 2 Elevated PSA (R97.20 ) Referral Organization [facility] Referring Provider First Name Luisito Referring Provider Last Name Nick Referring Provider Specialty Internal Me dicine Referred Organization [facility] Referred Provider Kashif Bowman [address]erred Address [address], [place],[address] Referred Provider Specialty Urology Referral Priority Routine General Notes Mr. Berg presents w ith an episode of gross hematuria. His workup included a CT scan of the abdomen and pelvis as well as labs. His CT scan revealed an abnormal thickening of the bladder wall. His PSA was persistently elevated, even after a 4 week course of antibiotic therapy. Eunice Olmos 04/27/2023 03:32:42 PM > spoke with the office, they will review the referral and contact the patient to schedule Roxana Aguilar 04/27/2023 04:48:31 PM >received today, noted above. faxed referral as well due to tracking. will follow up Reason *Waiting for appt Mr. Berg is being referred for an EGD to evaluate an abnormality from a CT scan as well as a screening colonoscopy Diagnosis [address] scan, [facility] (R93.3) Diagnosis 2 Encounter for screen ing colonoscopy (Z12.11) Referral Organization [facility] Referring Provider First Name Luisito Referring Provider Last Name Nick Referring Provider Specialty Internal Pa dicine Referred Organization [facility] Gastroenterolo gy Referred Provider Leonardo Alves Referred Address [address] ,[place], [place],[address] Referred Provider Specialty Gastroentero logy Referral Priority Routine General Notes Mr. Berg was schedu led for a CT scan of the abdomen and pelvis after presenting with c/o gross hematuria. His CT scan revealed an abnormal thickening of the stomach wall. He is being referred for an EGD and biopsy of this abnormal area. He is also being referred for a screening colonoscopy. He denies change in appetite, weight or bowel habits. He denies heartburn or dysphagia. He denies hematemesis, melena or hematochezia. Eunice Olmos 04/27/2023 03:39:22 PM >spoke with office, referral faxed over as an urgent referral they will review and call patient to schedule Roxana Aguilar 04/27/2023 04:36:47 PM >received today, noted above. referral faxed [facility] as well [facility] Other Summary Purpose Family History No Family History Records Found Advance Directives Advance Directive Response Recorded Date/ Time Advance Directives No December 12 9:25am Chief Complaint and Reason for Visit Chief Complaint Gastric Mass Additional Source Comments REASON FOR VISIT (unrecogniz ed section and content) BIG RIGHT TOE INFECTION, EAR INFECTION RIGHTHas Not Been Seen in Awhile-Toe InfectionReminder neededCT/LabsLab orderCT resultsdiscuss testing results Care Teams (unrecognized sec tion and content) Team Status: Inactive Member Role Status Dates CHRISTIN PlattC Attending Provider Active Team Status: Active Member Role Status Dates Luisito oRmero , Primary Care Provider Active Team Status: Inactive Member Role Status Dates Luisito Romero DO Primary Care Provider Active Leonardo Alves MD Attending Provider Active Goals (unrecognized section and content) Goals may be documented in a n alternate section (unrecognized sect ion and content) No Status Records FoundNo Status Records Found INFORMATION SOURCE (unrecogn ized section and content) DATE CREATED AUTHOR 05/03/2023 [facility] DATE CREATED AUTHOR AUTHOR'S ORGANIZ ATION 05/04/2023 [facility] FOR RECORDS PERTAINING TO PATIENTS WHO ARE OR HAVE BEEN ENROLLED IN A CHEMICAL DEPENDENCY/SUBSTANCEABUSE PROGRAM, SOME INFORMATION MAY BE OMITTED. This clinical summary was aggregated from multiple sources. Caution should be exercised in using it in the provision of clinical care. This summary normalizes information from multiple sources, and as a consequence, information in this document may materially change the coding, format and clinical context of patient data. In addition, data may be omitted in some cases. CLINICAL DECISIONS SHOULD BE BASED ON THE PRIMARY CLINICAL RECORDS. [employer] provides no warranty or guarantee of the accuracy or completeness of information in this document.
== END 2023-04-18 07:47 | disposition home or self-care (01) ==
LOC: LAB 07:46
PROVIDERS: PCP Internal Medicine; Visit Provider Internal Medicine
DX: R31.0 Gross hematuria (principal); R97.20 Elevated prostate specific antigen [PSA]
CPT/HCPCS: 36415; 74177; 82565; 84153; 84154; Q9967

== ENCOUNTER 2023-04-21 09:13 | Outpatient (OUT) | payer OTHER, SELFPAY ==
[2023-04-22 08:08] LABS: PSA, Free 2.18 ng/mL; Prostate Specific Ag 7.6 ng/mL (0.0-4.0)
== END 2023-04-21 09:14 | disposition home or self-care (01) ==
LOC: LAB 09:13
PROVIDERS: PCP Internal Medicine; Visit Provider Internal Medicine
DX: R97.20 Elevated prostate specific antigen [PSA] (principal)
CPT/HCPCS: 36415; 84153; 84154